=== PATIENT | male | born 1980 | race Two or more races ===

== ENCOUNTER 2023-10-23 04:06 | Emergency (ER) | payer OTHER ==
[~2023-10-23] VITALS: Ht 170.2 cm; Wt 149.7 kg
[2023-10-23 04:36] VITALS: PULSE 89; RESP 19; TEMP 98.5; O2SAT 96
[2023-10-23] MEDS: hydrALAZINE HCL 20 MG/ML VL IV ONE (04:57)
[2023-10-23] MEDS: TETANUS-DIPTH-ACEL PERTUSSIS 0.5ML SYR Tdap IM ONE (04:59)
[2023-10-23 06:47] VITALS: BP 146/86; PULSE 76; RESP 17; O2SAT 96
== END 2023-10-23 07:13 | disposition home or self-care (01) ==
LOC: ER 04:06
DX: S80.812A Abrasion, left lower leg, initial encounter (principal); I86.8 Varicose veins of other specified sites; I10 Essential (primary) hypertension; X58.XXXA Exposure to other specified factors, initial encounter; Y93.89 Activity, other specified; Y92.89 Other specified places as the place of occurrence of the external cause; Y99.8 Other external cause status
CPT/HCPCS: 12001; 90471; 90715; 96374; 99284; J0360